=== PATIENT | male | born 2000 | race Caucasian/White ===

== ENCOUNTER 2020-02-08 14:38 | Observation (INO) | payer BC ==
[~2020-02-08] VITALS: Ht 180.3 cm; Wt 70.3 kg
[~2020-02-08 14:38] MED LIST: IBUPROFEN 600600 M1 PO; NAPROSYN500 MG PO
[2020-02-08 17:54] LABS: ABSOLUTE NEUTROPHILS 8.4 thou/uL (1.4-8.2); BASOPHILS 0.2 % (0.0-2.0); EOSINOPHILS 0.5 % (0.0-3.0); HEMATOCRIT 40.3 % (42.0-52.0); HEMOGLOBIN 13.4 gm/dL (14.0-18.0); LYMPHOCYTES 12.9 % (24.0-44.0); MCH 26.2 pg (26.0-34.0); MCHC 33.3 g/dL (28.0-37.0); MCV 78.6 fL (80.0-100.0); MONOCYTES 7.1 % (1.0-8.0); PLATELET COUNT 220 thou/uL (150-400); POLYS 79.3 % (36.0-66.0); RBC 5.12 mil/uL (4.50-6.00); RDW 16.6 % (10.5-14.5); WBC 10.6 thou/uL (4.0-11.0)
[2020-02-08 18:00] LABS: CALCIUM 8.6 mg/dL (8.5-10.1); CREATININE 1.1 mg/dL (0.7-1.3); POTASSIUM 3.5 mmol/L (3.5-5.1)
[2020-02-08 18:06] LABS: ALBUMIN 4.1 g/dL (3.4-5.0); TOTAL BILIRUBIN 1.4 mg/dL (<0.1-1.0); TOTAL PROTEIN 7.2 g/dL (6.4-8.2)
[2020-02-08 19:48] VITALS: BP 111/71
--- NOTE | 2020-02-08 20:26 | NUR ---
DIRECT ADMIT FROM DR. KIM ADMITTED INTO [facility] FOR APPENDICITIS. TEMP 101.4. PT HAS HAD A COUGH FOR THE LAST WEEK. INFLUEZA TESTED NEG. IN DR. MITCHELL'S OFFICE. ORIENTED PT TO ROOM/ CALLIGHT W/I REACH. IV PLACED IN R FA. PT WILL HAVE SUGERY IN AM, CLEAR LIQUID DIET AT THIS TIME WILL BE NPO AFTER MN. FAMILY AT THE BEDSIDE.
[2020-02-09 03:10] VITALS: BP 118/64
--- NOTE | 2020-02-09 04:18 | NUR ---
ASSUMED PT CARE AT 1900. PT ORIENTED TO STAFF, ROOM AND USE OF CALL LIGHT. ADMISSION ASSESSMENT COMPLETED. VSS. CONSENTS SIGNED AND ORDERS IMPLEMENTED. NPO SINCE MIDNIGHT FOR APPENDECTOMY TODAY. REPORTS SHOOTING PAIN WHEN RLQ IS PALPATED. UP AD ANGIE IN ROOM. SWABBED FOR INFLUENZA, RESULTS CAME BACK NEGATIVE. AFEBRILE THIS EVENING. SLEEPING MOST THE SHIFT, WILL CONTINUE TO MONITOR.
--- NOTE | 2020-02-09 04:18 | NUR ---
ASS1`
[2020-02-09 05:11] VITALS: BP 114/74
[2020-02-09 07:55] VITALS: BP 123/68
[2020-02-09] MEDS ORDERED: OXYCODONE HCL 55 MG PO (08:22)
[2020-02-09] MEDS ORDERED: ACETAMINOPHEN325 M1 PO (08:23)
[2020-02-09] MEDS ORDERED: IBUPROFEN 200200 M1 PO (08:25)
[2020-02-09 09:11] VITALS: BP 114/74
[2020-02-09 09:36] VITALS: BP 114/74
--- NOTE | 2020-02-09 10:29 | NUR ---
PT CARE ASSUMED AT 0940 FROM POST OP SURGERY OF AN APPENDECTOMY. VITALS ARE STABLE. PT IS SLEEPING. LAP SITES ARE PRESENT WITH NO DRAINAGE. IV PATENT WITH NO REDNESS OR EDEMA. FLUIDS INFUSING. UP AT ANGIE. CALL LIGHT IN REACH.
[2020-02-09 12:01] VITALS: BP 114/74
--- NOTE | 2020-02-12 17:07 | PATH ---
[facility] [address] [place] [address] PATHOLOGY RPT PROCEDURE Name: DAMON FREEMAN Room #: 440-P DIS Kory M.R.#: [id number] Admission: 02/08/20 Date of : 89 Discharge: 02/09/20 Report #: [id number] Path Case #: [id number] [facility] Accession Number: [id number] . 01 Material submitted: . appendix - APPENDIX . 01 Clinical history: . Appendicitis . 02 Diagnosis: Appendix, appendectomy: - Mild focal acute inflammation. 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 02 Electronically signed: . Nelida Rueda MD, Pathologist NPI- [id number] . 01 Gross description: . The specimen is received in formalin, labeled "Damon Freeman appendix". Received is a vermiform appendix measuring 6.3 cm in length by up to 1.0 cm in diameter with a moderate amount of attached mesoappendix. The serosal surface is pale chou to pink-torres in appearance with moderate vasculature and the distal tip. The surgical margin is closed with a line of isaiah. The isaiah are removed the new margin is inked black. Sectioning reveals a patent to dilated lumen filled with fecal material. The specimen is submitted representatively in cassettes A1 and A2, with the proximal margin and bisected tip submitted in cassette A1. (CAA; 02/09/2020) QAC/QAC 02/09/2020 1903 Local . 02 Pathologist provided ICD-10: K35.80 . 02 CPT . 741283 Specimen Comment: A courtesy copy of this report has been sent to [phone], [phone] Specimen Comment: [id number] Specimen Comment: Report sent to / DR MITCHELL Performed at: [address], [place] [id number] MD Elvis Rios MD Phone: [phone] Performed at: 02 [place] [address] PATHOLOGY RPT PROCEDURE Name: DAMON FREEMAN Room #: 440-P [facility] M.REmmie#: [id number] Admission: 02/08/20 Date of : [birth year] Discharge: 02/09/20 Report #: [id number] Path Case #: [id number] [facility] [address], [place], [place] [id number] MD Nelida Rueda MD Phone: [phone]
== END 2020-02-09 13:26 | disposition home or self-care (01) ==
LOC: CAT 14:38 → 4S 16:52 → ENTRNSPT 02-09 13:22 → EDTRNSPTSTS 02-09 13:25 → 4S 02-09 13:26
PROVIDERS: ADMIT Surgery
DX: K35.80 Unspecified acute appendicitis (principal)
CPT/HCPCS: 50010; 50101; 50249; 50411; 50555; 50558; 50739; 50740; 52265; 53307; 53310; 53312; 54022; 54118; 56462; 62110; 62900; 70005

== ENCOUNTER → 2021-01-01 | Outpatient (CLI) | payer BC ==
[~2021-01-01] MED LIST changes: +ACETAMINOPHEN325 M1 PO; +IBUPROFEN 200200 M1 PO; +OXYCODONE HCL 55 MG PO
== END ==
LOC: LAB 08:26
PROVIDERS: ATTEND Nurse Practitioner
DX: M79.10 Myalgia, unspecified site (principal); R09.81 Nasal congestion; R05 Cough; Z20.822 Contact with and (suspected) exposure to COVID-19

== ENCOUNTER → 2021-03-25 | Outpatient (CLI) | payer BC | LOC: LAB 13:35 | PROVIDERS: ATTEND Nurse Practitioner | DX: R05 Cough (principal); R50.9 Fever, unspecified; Z20.822 Contact with and (suspected) exposure to COVID-19 ==